=== PATIENT | female | born 2000 | race Caucasian/White ===

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

== ENCOUNTER 2022-02-05 16:49 | Outpatient (CLI) | payer OTHER, SELFPAY ==
[2022-02-05 17:08] LABS: Hematocrit 43.2 % (37.0-47.0); Hemoglobin 14.3 g/dL (12.0-15.0); Mean Corpuscular HGB Conc 33.1 g/dl (32-36); Mean Corpuscular Hemoglobin 31.4 pg (26-34); Mean Corpuscular Volume 94.9 fl (80-100); Mean Platelet Volume 10.2 fl (7.4-10.4); Platelet Count Result 190 k/mm3 (150-375); Red Blood Count 4.55 M/mm3 (4.2-5.4); Red Cell Distribution Width 11.5 % (11.5-14.5); White Blood Count 5.5 K/mm3 (4.5-10.0)
[2022-02-05 17:22] LABS: Alanine Aminotransferase 16 U/L (6-35); Albumin Level 4.3 g/dL (3.7-5.6); Alkaline Phosphatase 68 U/L (45-116); Anion Gap 9 mmol/L (8-16); Aspartate Amino Transferase 19 U/L (14-36); Bilirubin,Total 0.3 mg/dL (0.2-1.3); Blood Urea Nitrogen 18 mg/dL (8-21); Calcium 8.4 mg/dL (8.9-10.7); Carbon Dioxide 29 mmol/L (22-30); Chloride 104 mmol/L (98-107); Estimated Glomerular Filt Rate > 60; Glucose 98 mg/dL (65-110); Potassium 4.4 mmol/L (3.4-5.0); Sodium 142 mmol/L (134-143)
== END 2022-02-05 16:50 | disposition home or self-care (01) ==
LOC: ANHLAB 16:50
PROVIDERS: PCP Family Medicine; Visit Provider Nurse Practitioner Family
DX: M25.40 Effusion, unspecified joint (principal); K92.1 Melena
CPT/HCPCS: 36415; 80053; 85027; 86038

== ENCOUNTER 2022-04-06 08:16 | Outpatient (CLI) | payer OTHER, SELFPAY ==
[2022-04-06 09:37] LABS: Iron 93 ug/dL (37-170)
[2022-04-06 09:46] LABS: Percent Iron Saturation 28 % (20-50)
== END 2022-04-06 08:17 | disposition home or self-care (01) ==
LOC: ANHLAB 08:18
PROVIDERS: PCP Family Medicine; Visit Provider Nurse Practitioner
DX: K92.1 Melena (principal); Z83.49 Family history of other endocrine, nutritional and metabolic diseases; K59.00 Constipation, unspecified; M25.40 Effusion, unspecified joint
CPT/HCPCS: 36415; 81256; 82728; 83540; 83550

== ENCOUNTER 2022-04-30 00:21 | Day surgery (SDC) | payer OTHER, SELFPAY ==
[2022-04-26 15:58] VITALS: BMI 39.9
--- NOTE | 2022-04-28 09:40 | SUR.PREOP ---
943 CALLED PATIENT SPOKE WITH HER MOM AND INFORMED HER OF HER CASE BEING CANCELLED DUE TO UNAVAILABILITY. INFORMED PT'S MOM THAT THE OFFICE WOULD CALL AND RESCHEDULE. PATIENT'S MOM VOICED UNDERSTANDING.
[2022-04-30 12:00] VITALS: BP 126/70; PULSE 108; RESP 20; TEMP 37.1; O2SAT 98
[2022-04-30] MEDS: LACTATED RINGERS 1,000 ML 150 ML IV CONT (12:19)
--- NOTE | 2022-04-30 12:19 | WPDANESEPPF ---
Anes - Initial Pre Proc Eval Procedure: Operation Date: 04/29/22 10:15 Proposed Procedures p Colonoscopy - Jay Cantu MD Operation Date: 04/30/22 13:00 Proposed Procedures p Colonoscopy - Jay Cantu MD Date/Time: 04/30/22 12:19 Surgeon: Jay Cantu MD Pre Op Diagnosis: constipation, rectal bleed Patient Data Age: 21 Gender: F Height: 1.6 m Weight: 103.7 kg Last Vital Signs Temp 37.1 C 04/30/22 12:00 Pulse 108 H 04/30/22 12:00 Resp 20 04/30/22 12:00 BP 126/70 04/30/22 12:00 Pulse Ox 98 04/30/22 12:00 O2 Del Method Room Air 04/30/22 12:00 Allergies Allergy/AdvReac Type Severity Reaction Status Date / Time No Known Allergies Allergy Mild Verified 04/30/22 11:56 Home Medications Medication Instructions Recorded Confirmed Type levonorgestrel 20 mcg/24 hours (8 1 insert intrauterine ONCE 08/13/21 04/29/22 History yrs) 52 mg intrauterine device (Mirena) cetirizine 10 mg capsule (Zyrtec) 10 mg PO DAILY PRN allergy 12/10/21 04/30/22 Rx symptoms #30 caps famotidine 10 mg tablet (Pepcid AC) 10 mg PO DAILY #30 tabs 12/10/21 04/29/22 Rx hydroxyzine HCl 25 mg tablet 25 mg PO BID PRN itching #30 tabs 12/10/21 04/29/22 Rx elagolix 150 mg tablet (Orilissa) See Rx Instructions .Route 03/11/22 04/29/22 Rx .COMPLEX #28 tabs venlafaxine 150 mg See Rx Instructions .Route 03/11/22 04/29/22 Rx capsule,extended release 24 hr .COMPLEX #90 caps venlafaxine 75 mg capsule,extended See Rx Instructions .Route 03/11/22 04/29/22 Rx release 24 hr .COMPLEX #90 caps montelukast 10 mg tablet 10 mg PO DAILY #90 tabs 03/27/22 04/29/22 Rx (Singulair) sodium,potassium,mag sulfates 17.5 See Rx Instructions PO .COMPLEX 04/25/22 04/29/22 Rx gram-3.13 gram-1.6 gram oral soln #354 mL (Suprep Bowel Prep Kit) metoprolol succinate 25 mg 25 mg PO BID 04/26/22 04/29/22 History tablet,extended release 24 hr cefdinir 300 mg capsule 300 mg PO Q12H #20 caps 04/29/22 04/29/22 Rx Patient hx anesthesia problems: none Family hx anesthesia problems: none Results Review: All pre-operative results and documents have been reviewed as part of the pre-operative evaluation. [facility] Past Medical History Medical History BMI 35.0-35.9,adult BMI 38.0-38.9,adult BMI 40.0-44.9, adult Colonoscopy planned Constipation Depression Endometriosis Endometriosis determined by laparoscopy Family history of hemochromatosis Hematochezia Hives Family History Family History Mother Hypertension Atrial tachycardia Diverticula of colon Endometriosis Irritable bowel Malignant hyperthermia Father Malignant neoplasm of prostate Hemochromatosis Hypothyroid Adrenal abnormality Depression Sibling No problems noted. 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 Gender identity (if verbalized by the patient): Female Sexual Orientation (if Verbalized by the Patient): Bisexual Spiritual care concerns: No Agree to blood products: Yes Anes - Eval Final PreProcedure Day of Procedure 04/30/22 12:19 Patient weight: morbidly obese Heart: regular rate and rhythm Lungs: clear to auscultation Airway: Mallampati scale class 1 Neurological: alert and oriented Last oral intake: >/= 8 hours ASA classification: III Emergent: no Anesthetic plan: proceed Anesthesia type and monitoring: general GIVS and standard monitoring Results Review: All pre-operative results and documents have bee
--- NOTE | 2022-04-30 12:38 | PM.HPGS ---
History of Present Illness History of Present Illness Consent: Risks, benefits, and alternatives have been discussed and questions answered. Patient agrees to proceed with procedure. Chief complaint: constipation, rectal bleed Narrative: Bethany Lake is a 21 year old female here because intermittent rectal bleeding Review of Systems Constitutional: Constitutional: Denies headache(s) and Denies weakness Eyes: Eyes: Denies blurry vision ENT: Reports Normal hearing present, Denies headache(s) and Denies neck pain Cardiovascular: Cardiovascular: Denies chest pain and Denies dyspnea Respiratory: Respiratory: Denies dyspnea Gastrointestinal: Gastrointestinal: Reports no additional gastrointestinal complaints Genitourinary: Genitourinary: Denies dysuria Musculoskeletal: Musculoskeletal: Denies neck pain Integumentary/Breasts: Skin/Breast: Denies dry skin Neurologic: Reports Normal hearing present, Denies headache(s) and Denies weakness Psychiatric: Psychiatric: Denies anxiety Endocrine: Endocrine: Denies change in body appearance Hematologic/Lymphatic: Hematologic/Lymphatic: Denies easy bleeding Allergic/Immunologic: Allergic/Immunologic: Denies urticaria PMFSH Past Medical History Medical History BMI 35.0-35.9,adult BMI 38.0-38.9,adult BMI 40.0-44.9, adult Colonoscopy planned Constipation Depression Endometriosis Endometriosis determined by laparoscopy Family history of hemochromatosis Hematochezia Hives Family History Family History Mother Hypertension Atrial tachycardia Diverticula of colon Endometriosis Irritable bowel Malignant hyperthermia Father Malignant neoplasm of prostate Hemochromatosis Hypothyroid Adrenal abnormality Depression Sibling No problems noted. 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[employer] Gender identity (if verbalized by the patient): Female Sexual Orientation (if Verbalized by the Patient): Bisexual Spiritual care concerns: No Agree to blood products: Yes Meds Home Medications and Allergies Home Medications Medication Instructions Recorded Confirmed Type levonorgestrel 20 mcg/24 hours (8 1 insert intrauterine ONCE 08/13/21 04/29/22 History yrs) 52 mg intrauterine device (Mirena) cetirizine 10 mg capsule (Zyrtec) 10 mg PO DAILY PRN allergy 12/10/21 04/30/22 Rx symptoms #30 caps famotidine 10 mg tablet (Pepcid AC) 10 mg PO DAILY #30 tabs 12/10/21 04/29/22 Rx hydroxyzine HCl 25 mg tablet 25 mg PO BID PRN itching #30 tabs 12/10/21 04/29/22 Rx elagolix 150 mg tablet (Orilissa) See Rx Instructions .Route 03/11/22 04/29/22 Rx .COMPLEX #28 tabs venlafaxine 150 mg See Rx Instructions .Route 03/11/22 04/29/22 Rx capsule,extended release 24 hr .COMPLEX #90 caps venlafaxine 75 mg capsule,extended See Rx Instructions .Route 03/11/22 04/29/22 Rx release 24 hr .COMPLEX #90 caps montelukast 10 mg tablet 10 mg PO DAILY #90 tabs 03/27/22 04/29/22 Rx (Singulair) sodium,potassium,mag sulfates 17.5 See Rx Instructions PO .COMPLEX 04/25/22 04/29/22 Rx gram-3.13 gram-1.6 gram oral soln #354 mL (Suprep Bowel Prep Kit) metoprolol succinate 25 mg 25 mg PO BID 04/26/22 04/29/22 History tablet,extended release 24 hr cefdinir 300 mg capsule 300 mg PO Q12H #20 caps 04/29/22 04/29/22 Rx Allergies Allergy/AdvReac Type Severity Reaction Status Date / Time No Known Allergies Allergy Mild Verified 04/30/22 11:56 Vital Signs Vital Signs - 24 hr 04/30/22 12:00
[2022-04-30 12:55] VITALS: BP 88/55; PULSE 78; RESP 22; O2SAT 100
[2022-04-30 13:05] VITALS: BP 104/62; PULSE 84; RESP 22; O2SAT 100
[2022-04-30 13:15] VITALS: BP 107/73; PULSE 78; RESP 20; O2SAT 100
== END 2022-04-30 13:27 | disposition home or self-care (01) ==
PROVIDERS: PCP Family Medicine; Visit Provider Internal Medicine Gastroenterology
PROC: 0DJD8ZZ Inspection of Lower Intestinal Tract, Via Natural or Artificial Opening Endoscopic (ICD-10-PCS; CPT 45378; principal; 2022-04-30 13:00)
DX: K92.1 Melena (principal); K64.8 Other hemorrhoids; N80.9 Endometriosis, unspecified; F32.A Depression, unspecified; E66.01 Morbid (severe) obesity due to excess calories
CPT/HCPCS: 45378; J2704; J7120

== ENCOUNTER → 2022-06-10 16:42 | Outpatient (CLI) | payer OTHER, SELFPAY ==
--- NOTE | ~2022-06-10 | XR_ITS ---
EXAMINATION: XR chest 2V 06/10/2022 16:55 INDICATION: Cough PROCEDURE: 2 view chest COMPARISON: 06/13/2021 FINDINGS: The lungs are clear. The cardiomediastinal silhouette is within normal limits. There are no pleural effusions. There is no pneumothorax suspected. IMPRESSION: 1: NO ACUTE CARDIOPULMONARY DISEASE. Reviewed, dictated and finalized at location A. [employer]
== END ==
PROVIDERS: PCP Nurse Practitioner Family; Visit Provider Nurse Practitioner Family
DX: R05.9 Cough, unspecified (principal)
CPT/HCPCS: 71046

== ENCOUNTER 2023-04-01 11:17 | Outpatient (CLI) | payer OTHER, SELFPAY ==
[2023-04-01 11:57] LABS: Basophils Percent Auto 0.3 % (0.2-1.2); Eosinophils Percent Auto 0.2 % (0-4.4); Hematocrit 46.5 % (37.0-47.0); Hemoglobin 15.3 g/dL (12.0-15.0); Immature Granulocyte Absolute 0.02 K/mm3 (0.00-0.031); Immature Granulocyte Percent A 0.3 % (0-0.5); Lymphocytes Absolute Auto 2.09 K/mm3 (0.9-3.2); Lymphocytes Percent Auto 35.1 % (18.3-44.2); Mean Corpuscular HGB Conc 32.9 g/dl (32-36); Mean Corpuscular Hemoglobin 31.7 pg (26-34); Mean Corpuscular Volume 96.5 fl (80-100); Mean Platelet Volume 10.9 fl (7.4-10.4); Monocytes Absolute Auto 0.4 K/mm3 (0.1-0.6); Monocytes Percent Auto 7.2 % (2.6-8.5); Neutrophils Absolute Auto 3.4 K/mm3 (1.3-6.7); Neutrophils Percent Auto 56.9 % (45.5-73.1); Platelet Count Result 229 k/mm3 (150-375); Red Blood Count 4.82 M/mm3 (4.2-5.4); Red Cell Distribution Width 11.7 % (11.5-14.5)
[2023-04-01 12:13] LABS: Alanine Aminotransferase 19 U/L (6-35); Albumin Level 4.4 g/dL (3.5-5.1); Alkaline Phosphatase 49 U/L (38-126); Anion Gap 6 mmol/L (8-16); Aspartate Amino Transferase 24 U/L (14-36); Bilirubin,Total 0.6 mg/dL (0.2-1.3); Blood Urea Nitrogen 12 mg/dL (7-17); Calcium 8.6 mg/dL (8.4-10.2); Carbon Dioxide 27 mmol/L (22-30); Chloride 106 mmol/L (98-107); Estimated Glomerular Filt Rate > 60; Glucose 87 mg/dL (65-110); Sodium 139 mmol/L (137-145)
[2023-04-01 12:40] LABS: Thyroid Stimulating Hormone 0.917 uIU/mL (0.465-4.680)
== END 2023-04-01 11:18 | disposition home or self-care (01) ==
LOC: ANHLAB 11:18
PROVIDERS: PCP Family Medicine; Visit Provider Nurse Practitioner Family
DX: N80.9 Endometriosis, unspecified (principal); F32.A Depression, unspecified; F41.9 Anxiety disorder, unspecified; Z13.29 Encounter for screening for other suspected endocrine disorder
CPT/HCPCS: 36415; 80053; 84443; 85025

== ENCOUNTER 2023-10-06 15:09 | Outpatient (CLI) | payer OTHER, SELFPAY ==
--- NOTE | 2023-10-08 12:54 | P.PCNPFT_ITS ---
PFT Procedure Performed PFT Procedure Performed Plethysmography (Lung Vol) Diffusing Cap (DLCO) Flow Vol Loop Spirometry w/o Bronchodil PFT Interpretation This is a pulmonary function test with spirometry, plethysmography and diffusing capacity. The test was performed and results interpreted in accordance with the 2019 and 2005 ATS/ERS Task Force guidelines respectively using the Global Lung Function Initiative-2012 reference equations. Patient demonstrated good effort and cooperation. Reproducibility criteria were met. The quality of the spirometry maneuver was Grade A. Of note, plethysmography demonstrated 3 trials with reproducible results. Unable to identify any leaks on the mouthpiece or inco rrect patient technique. Findings: Spirometry: The contour the inspiratory and expiratory flow tracing are normal. The FVC is 4.61 L, 131% predicted. The FEV1 is 3.78 L, 122% predicted. The FEV1: FVC ratio is 82%. Plethysmography: The total lung capacity is 4.71 L, 100% predicted. The functional residual capacity is 1.00 L, 40% predicted. The residual volume is 0.05 L, 5% predicted. Diffusing capacity: The diffusing capacity unadjusted for hemoglobin and carboxyhemoglobin is 27.7, 110% predicted. The diffusing capacity adjusted for alveolar volume is 5.41, 105% predicted. Impression: The spirometry is normal without evidence of an obstructive abnormality. The total lung capacity is normal with a decreased functional residual capacity and residual volume. This is an abnormal but nonspecific lung volume pattern. The diffusing capacity is normal. There are no prior studies for comparison
== END 2023-10-06 15:10 | disposition home or self-care (01) ==
LOC: ANHPFT 15:10
PROVIDERS: PCP Family Medicine; Visit Provider Nurse Practitioner Family
DX: R06.02 Shortness of breath (principal)
CPT/HCPCS: 94375; 94726; 94729

== ENCOUNTER 2023-10-20 12:06 | Outpatient (CLI) | payer OTHER, SELFPAY ==
[2023-10-20 13:05] LABS: Alanine Aminotransferase 15 U/L (6-35); Albumin Level 4.4 g/dL (3.5-5.1); Alkaline Phosphatase 58 U/L (38-126); Anion Gap 8 mmol/L (4-12); Aspartate Amino Transferase 20 U/L (14-36); Bilirubin,Total 0.4 mg/dL (0.2-1.3); Blood Urea Nitrogen 15 mg/dL (7-17); Calcium 9.1 mg/dL (8.4-10.2); Carbon Dioxide 24 mmol/L (22-30); Chloride 108 mmol/L (98-107); Estimated Glomerular Filt Rate > 60; Glucose 94 mg/dL (65-110); Sodium 140 mmol/L (137-145)
[2023-11-04 14:05] LABS: Reference Lab Test Result <1.0 U/mL
== END 2023-10-20 12:07 | disposition home or self-care (01) ==
PROVIDERS: PCP Family Medicine; Visit Provider Physician Assistant Medical
DX: R10.11 Right upper quadrant pain (principal); R19.5 Other fecal abnormalities
CPT/HCPCS: 36415; 80053; 86364

== ENCOUNTER 2023-10-24 10:19 | Outpatient (CLI) | payer OTHER, SELFPAY ==
--- NOTE | ~2023-10-24 | US_ITS ---
Abdominal Sonogram: Real-time sonographic imaging of the abdomen was performed. Clinical History: Abdominal pain Findings: The liver appears normal with no evidence of mass lesion or bile duct dilatation. Main por tacho vein demonstrates normal direction of flow. The spleen is normal in size without evidence of foca l lesion. The gallbladder is partially distended, and contains a small echogenic shadowing gallstone . No gallbladder wall thickening. The common bile duct measures 4 mm. The visualized pancreas, aorta , and IVC are unremarkable. The right kidney measures 12.2 cm in length and the left kidney measures 10.8 cm. There is no hydronephrosis or renal calculus. Impression: Small gallstone. Reviewed, dictated and finalized at location . Impression: Small gallstone.
== END 2023-10-24 10:20 ==
LOC: MICIMG 10:20
PROVIDERS: PCP Physician Assistant Medical; Visit Provider Physician Assistant Medical
DX: K80.20 Calculus of gallbladder without cholecystitis without obstruction (principal)
CPT/HCPCS: 76700

== ENCOUNTER 2023-10-25 14:07 | Emergency (ER) | payer OTHER, SELFPAY ==
[2023-10-25 14:12] VITALS: BP 133/73; PULSE 90; RESP 20; TEMP 37; O2SAT 100
== END 2023-10-25 14:28 | disposition left against medical advice (07) ==
LOC: EXPBETH 14:10
PROVIDERS: Emergency Provider Registered Nurse; PCP Physician Assistant Medical
DX: Z53.21 Procedure and treatment not carried out due to patient leaving prior to being seen by health care provider (principal)
CPT/HCPCS: 99199

== ENCOUNTER 2023-10-25 15:10 | Emergency (ER) | payer OTHER, SELFPAY ==
--- NOTE | ~2023-10-25 | XR_ITS ---
EXAMINATION: XR chest 2V Exam Date/Time: 10/25/2023 19:15 CDT HISTORY: chest pain x 2 weeks. Comparison: 06/10/2022, report only. RESULT: Lines, tubes, and devices: None. Lungs and pleura: Linear opacity in the right upper lung. Cardiomediastinal silhouette: Normal. Other: No acute osseous or upper abdominal finding. IMPRESSION: Linear opacity in the right upper lung, may represent summation artifact from normal structures, atel ectasis or scarring. Focus of infection is considered less likely. Consider radiographic follow-up to demonstrate stability and/or resolution. Otherwise, no acute cardiopulmonary process detected. Reviewed, dictated and finalized at location K. IMPRESSION: Linear opacity in the right upper lung, may represent summation artifact from n ormal structures, atelectasis or scarring. Focus of infection is considered les s likely. Consider radiographic follow-up to demonstrate stability and/or resol ution. Otherwise, no acute cardiopulmonary process detected.
[2023-10-25 15:15] VITALS: BP 118/93; PULSE 77; RESP 20; TEMP 37.3; O2SAT 100
[2023-10-25 17:03] VITALS: BP 121/81; PULSE 79; RESP 20; TEMP 37; O2SAT 100
--- NOTE | 2023-10-25 17:03 | PC.NURSE ---
PT RESTING PER COT, MOTHER IN ROOM WITH PT. EXPLAINED WAIT TIME. VOICED UNDERSTANDING
--- NOTE | 2023-10-25 17:19 | PC.NURSE ---
dr cifuentes in with pt for initial assessment
--- NOTE | 2023-10-25 17:26 | ED.GENADULT ---
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 Patient has been using Gas-X and Pepcid for this as well as her GERD that she has had. She missed 2 days of work last week. her primary care Madalyn Callahan PAC note stated that they would get a HIDA scan if there was no stone. A CBC was done which was normal. Patient denies any problems voiding. Little bit of constipation yesterday she had a normal bowel movement she rates her pain as a 6 to 7/10. He has also had some chest tightness that last for 5-10 minutes off and on for the last month for pretty much a daily basis. She said she had a normal chest x-ray in July and has had 3 episodes of SVT since July. She came in with her mother was also a nurse they are worried that she might have an infection could she has had some fevers off and on mostly at nighttime. And they also wonder if she needs to be on some antibiotics. Pain is in the epigastric and radiates to her right upper quadrant. She said she has been little distended bloated. Denies any other complaints. Related Data Home Medications Medication Instructions Recorded Confirmed levonorgestrel 21 mcg/24 hours (8 1 insert intrauterine ONCE 08/13/21 10/20/23 yrs) 52 mg intrauterine device (Mirena) metoprolol tartrate 25 mg tablet 25 mg PO BID 09/11/23 10/20/23 Allergies Allergy/AdvReac Type Severity Reaction Status Date / Time No Known Allergies Allergy Mild Verified 10/25/23 15:13 Review of Systems Review of Systems: All systems reviewed & are unremarkable except as noted in HPI and below PMFSH Past Medical History Medical History BMI 34.0-34.9,adult BMI 35.0-35.9,adult BMI 36.0-36.9,adult BMI 38.0-38.9,adult BMI 40.0-44.9, adult Colonoscopy planned Constipation Depression Endometriosis Endometriosis determined by laparoscopy Family history of hemochromatosis Hematochezia Hives Inappropriate sinus node tachycardia Family History Family History Mother Hypertension Atrial tachycardia Diverticula of colon Endometriosis Irritable bowel Malignant hyperthermia Father Malignant neoplasm of prostate Hemochromatosis Hypothyroid Adrenal abnormality Depression Sibling No problems noted. 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 Head normocephalic, atraumatic.? Eyes conjunctiva pink sclera nonicteric.? Extraocular movements are intact.? Ears externally normal.? Oropharynx is clear with moist mucous membranes without exudates.? Neck is supple nontender no lymphadenopathy.? Back is nontender.? Lungs are clear.? Heart is regular rate and rhythm without murmurs gallops or rubs.? Chest wall nontender.? Back is nontender. Abdomen is soft and minimally tender in right upper quadrant. No hepatosplenomegaly or masses no CVA tenderness no abdominal bruits.? ne
[2023-10-25] MEDS: HYDROcodone/acetaminophen (*CRX) 5-325 MG TABLET 1 TAB PO ×2 (17:58→20:26)
[2023-10-25 17:59] VITALS: BP 113/68; PULSE 88; RESP 20; O2SAT 100
--- NOTE | 2023-10-25 18:29 | PC.NURSE ---
LAB STAFF IN WITH PT AT THIS TIME FOR LAB DRAW.
[2023-10-25 18:41] LABS: Hematocrit 42.9 % (35.0-49.0); Hemoglobin 14.5 g/dL (12.0-15.0); Mean Corpuscular HGB Conc 33.8 g/dL (32-36); Mean Corpuscular Volume 94.7 fL (78.0-102.0); Mean Platelet Volume 10.1 fl (9.2-11.8); Platelet Count Result 219 K/mm3 (150-420); Red Blood Count 4.53 M/mm3 (4.20-5.40); Red Cell Distribution Width 11.2 % (11.6-14.4); White Blood Count 7.1 K/mm3 (4.8-10.8)
[2023-10-25 18:56] LABS: Lactic Acid Reflex 1.4 mmol/L (0.4-2.0)
[2023-10-25 18:58] LABS: Appearance Urine Clear (Clear); Bilirubin Urine Negative (Negative); Blood Urine Negative (Negative); Color Urine Light Yellow (Yellow); Glucose Urine UA Negative (Negative); Ketones Urine Negative (Negative); Leukocyte Esterase Ur Negative LEU/UL (Negative); Nitrate Urine Negative (Negative); Protein Urine Negative (Negative); Urobilinogen Urine 0.2 mg/dL (0.2-1.0)
[2023-10-25 19:03] LABS: Alanine Aminotransferase 21 U/L (14-59); Albumin Level 3.9 g/dL (3.4-5.0); Alkaline Phosphatase 63 U/L (46-116); Anion Gap 11 mmol/L (4-12); Aspartate Amino Transferase 12 U/L (15-37); Bilirubin,Total 0.6 mg/dL (0.00-1.00); Blood Urea Nitrogen 10 mg/dL (7-18); Calcium 8.8 mg/dL (8.5-10.1); Carbon Dioxide 25 mmol/L (21-32); Chloride 105 mmol/L (98-108); Estimated CRCL calculation 87 ml/min; Estimated Glomerular Filt Rate > 60; Glucose 86 mg/dL (70-99); Lipase 44 U/L (16-77); Osmolality Calculated 290 mOsm/kg (285-295); Potassium 3.1 mmol/L (3.5-5.1); Sodium 141 mmol/L (136-145); Total Protein 7.2 g/dL (6.4-8.2)
[2023-10-25 19:05] LABS: Add Urine Microscopic? NO
--- NOTE | 2023-10-25 19:15 | PC.NURSE ---
report to chapito acuña. all questions answered.
[2023-10-25 19:16] LABS: Pregnancy On Board Control Positive; Urine Pregnancy Test Negative
--- NOTE | 2023-10-25 19:18 | ECG_ITS ---
SEE SCANNED COPY FOR CONFIRMED REPORT MTDD
[2023-10-25] MEDS: POTASSIUM CHLORIDE 20 MEQ PACKET (FOR LIQUID) 40 MEQ PO (20:40)
[2023-10-25 20:53] VITALS: BP 120/88; PULSE 78; RESP 18; TEMP 36.6; O2SAT 100
== END 2023-10-25 20:53 | disposition home or self-care (01) ==
PROVIDERS: Emergency Provider Emergency Medicine; PCP Physician Assistant Medical
DX: K83.8 Other specified diseases of biliary tract (principal); E87.6 Hypokalemia
CPT/HCPCS: 36415; 71046; 80053; 81003; 81025; 83605; 83690; 85027; 93005; 99283; A9270

== ENCOUNTER 2023-11-03 03:36 | Day surgery (SDC) | payer OTHER, SELFPAY ==
[2023-10-31 12:19] VITALS: BMI 34.0
--- NOTE | 2023-10-31 12:44 | PC.NURSE ---
Report to the Outpatient Waiting Room, entrance under the green pavilion located off [facility], at time _12:00PM on date ___11/03/23____. Planned Procedure Time: ___2:00PM . Time changes happen often and if your time is changed the preop area will call you the afternoon before. - You and your visitor will be asked to self-screen and do not enter if you have any COVID symptoms. - A mask is optional within the hospital at this time. Patients may have clear liquids (water, carbonated beverages, clear teas, apple juice) until 3 hours prior to surgery with a maximum of 20 ounces. - No food from midnight until time of surgery - Infants may have breast milk until 4 hours before surgery, infant formula 6 hours prior to surgery. - Children will be allowed to drink immediately following surgery. If applicable, please bring a bottle or sippy cup to assist with drinking. Juice, water, soda, and popsicles are readily available. For infants on formula, please bring formula the day of surgery. Pacifiers are allowed. Take the following medications with a SIP of water the morning of surgery: ____METOPROLOL, VENLAFAXINE. TRAMADOL NEEDED FOR PAIN. DO NOT STOP ANY OF YOUR OTHER PRESCRIPTION MEDICATIONS PRIOR TO SURGERY ?EXCEPT THE FOLLOWING Medications to discontinue per physician NONE Date to take last dose Please no make-up, nail french, hairspray, perfume, deodorant, or body powder the day of surgery. No jewelry (including any body piercings) or valuables the day of surgery, leave them at home. Please take a shower or bath the night before, or the morning of, surgery with an antibacterial soap. Wear comfortable, loose fitting clothing. Children are encouraged to wear pajamas. - Jewelry must be removed prior to entering the operating room. Rings and piercings that are not removed may be cut off. - The hospital will not accept responsibility for valuables. - Please leave all valuables, including medications, at home the day of surgery. If you are going home after surgery, a licensed [employer] hazmat company driver must drive you home. - NO public transportation without another adult if you receive anesthesia. - We recommend that an adult stay with you for 24 hours following discharge. - We also recommend that you do not drive, make important decision, drink alcoholic beverages, or take any drugs that were not prescribed by your health care provider for at least 24 hours after your discharge time. For Pediatric surgeries, we recommend two adults accompany the child home. Follow any additional instructions given to you from your surgeon. If you or anyone in your household have experienced Covid symptoms in the past week, please notify your surgeon or the nurse liaison at the phone number below for possible testing. Telephone instructions given to ____PATIENT and asked if any additional questions and then verbalized understanding. Patient advised to call surgeon office or pre surgery nurse liaison [phone] if any additional questions.
[2023-11-03] VITALS (9 sets, daily range): BP systolic 108–132; BP diastolic 63–109; PULSE 75–105; RESP 14–16; TEMP 35.9–36.3; O2SAT 100
[2023-11-03] MEDS: LACTATED RINGERS 1,000 ML 30 ML IV CONT ×2 (07:15→08:36)
[2023-11-03] MEDS: ACETAMINOPHEN 500 MG TABLET 1000 MG PO (07:15)
[2023-11-03] MEDS: KETOROLAC 15 MG/ML VIAL (*BKC) IV PUSH (07:15)
--- NOTE | 2023-11-03 07:15 | WPDANESEPPF ---
Anes - Initial Pre Proc Eval Procedure: Operation Date: 11/03/23 07:30 Proposed Procedures p Laparoscopic Cholecystectomy - Elana Presley MD Date/Time: 11/03/23 07:15 Surgeon: Elana Presley MD Pre Op Diagnosis: chronic cholecystitis with cholelithiasis Patient Data Age: 23 Gender: F Height: 1.6 m Weight: 87 kg Allergies Allergy/AdvReac Type Severity Reaction Status Date / Time No Known Allergies Allergy Mild Verified 10/31/23 12:14 Home Medications Medication Instructions Recorded Confirmed Type levonorgestrel 21 mcg/24 hours (8 1 insert intrauterine ONCE 08/13/21 10/31/23 History yrs) 52 mg intrauterine device (Mirena) cetirizine 10 mg capsule (Zyrtec) 10 mg PO DAILY PRN allergy 12/10/21 10/31/23 Rx symptoms #30 caps famotidine 10 mg tablet (Pepcid AC) 10 mg PO DAILY #30 tabs 12/10/21 10/31/23 Rx hydroxyzine HCl 25 mg tablet 25 mg PO BID PRN itching #30 tabs 12/10/21 10/31/23 Rx venlafaxine 75 mg capsule,extended 75 mg PO DAILY #90 caps 07/14/23 10/31/23 Rx release 24 hr metoprolol tartrate 25 mg tablet 25 mg PO BID 09/11/23 10/31/23 History potassium chloride 20 mEq 20 meq PO DAILY #10 tabs 10/25/23 10/31/23 Rx tablet,extended release(part/cryst) tramadol 50 mg tablet 50 mg PO BID PRN pain #14 tabs 10/27/23 10/31/23 Rx venlafaxine 150 mg 150 mg PO QAM 10/31/23 10/31/23 History capsule,extended release 24 hr Laboratory Tests 11/03/23 06:59 Amylase Pending Patient hx anesthesia problems: hx of malignant hyperthermia (family history of; will treat as if MH) Family hx anesthesia problems: none Results Review: All pre-operative results and documents have been reviewed as part of the pre-operative evaluation. [facility] Past Medical History Medical History BMI 33.0-33.9,adult BMI 34.0-34.9,adult BMI 35.0-35.9,adult BMI 36.0-36.9,adult BMI 38.0-38.9,adult BMI 40.0-44.9, adult Colonoscopy planned Constipation Depression Endometriosis Endometriosis determined by laparoscopy Family history of hemochromatosis Hematochezia Hives Inappropriate sinus node tachycardia Surgical History Surgical History History of lingual frenulectomy History of wisdom tooth extraction Hx of exploratory laparotomy endometriosis 07/2020 Family History Family History Mother Hypertension Atrial tachycardia Diverticula of colon Endometriosis Irritable bowel Malignant hyperthermia Father Malignant neoplasm of prostate Hemochromatosis Hypothyroid Adrenal abnormality Depression Sibling No problems noted. 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[employer] Gender identity (if verbalized by the patient): Female Sexual Orientation (if Verbalized by the Patient): Bisexual Spiritual care concerns: No Agree to blood products: Yes Anes - Eval Final PreProcedure Day of Procedure 11/03/23 07:15 Patient weight: obese Heart: regular rate and rhythm Lungs: clear to auscultation Airway: Mallampati scale class III Neurological: alert and oriented Last oral intake: >/= 8 hours ASA classification: III Emergent: no Anesthetic plan: proceed Anesthesia type and monitoring: general ETT and standard monitoring Results Review: All pre-operative results and documents have been reviewe
[2023-11-03] MEDS: fentaNYL CITRATE INJ (*CRX) 100 MCG/2 ML VIAL 25 MCG IV PUSH ×2 (07:20→07:22)
--- NOTE | 2023-11-03 07:22 | WPDHPUPDATE1 ---
History and Physical Update Update Date/Time: 11/03/23 07:22 History and Physical has been reviewed, including an updated exam of the patient. There are NO changes in the patient's condition. Risks, benefits, and alternatives have been discussed and questions answered. Patient agrees to proceed with procedure. will proceed with laparoscopic cholecystectomy
[2023-11-03 07:23] LABS: Amylase 62 U/L (30-110)
[2023-11-03] MEDS: ceFAZolin 2 GM/D5W 50 ML 2 GM/50 ML BAG IVPB (07:28)
[2023-11-03] MEDS: BUPIVACAINE/EPINEPHRINE 0.5% 30 ML VIAL INFILTRATE (07:52)
--- NOTE | 2023-11-03 08:12 | W.PM.PROC2 ---
Procedure Note - Detailed Date of Procedure 11/03/23 Pre-op Diagnosis chronic cholecystitis Post-op Diagnosis Same Procedure Performed Laparoscopic cholecystectomy Surgeon Elana Presley MD Anesthesia General Indications 23-year-old female presented to the office complaining of postprandial right upper quadrant abdominal pain associated with nausea and vomiting. Workup including imaging significant for cholecystitis, cholelithiasis. Findings Moderate cholecystitis Description of Procedure The patient was taken to the operating room placed in the supine position. After adequate induction of general anesthesia, the patient was prepped and draped in normal sterile fashion. A time-out was then performed to verify the patient's identity as well as the procedure being performed. I then made a 5 mm incision in the infraumbilical region. Through this, a Veress needle was placed into the peritoneal cavity and CO2 gas was then insufflated. After adequate pneumoperitoneum was achieved, the Veress needle was removed and a 5 mm optiview trocar was placed through this incision under direct visualization. I then placed the laparoscope through this trocar site and under direct visualization placed a further 12 mm subxiphoid port as well as 2 additional 5 mm ports in the right upper abdomen. The gallbladder was then identified and was noted to be moderately inflamed and distended. I was able to place a grasper at the dome of the gallbladder and this was retracted anterior and cephalad up over the liver. A 2nd retractor was then placed at the infundibulum and retracted laterally, this allowed visualization of the triangle of Calot. I then was able to visualize the cystic duct in its entirety from its proximal insertion into the gallbladder, to its distal junction with the common hepatic/common bile duct junction. At this point, I carefully skeletonized the proximal cystic duct with the [place] dissector. I then clipped and transected the proximal cystic duct. Next I visualized the cystic artery. Again the artery was skeletonized, clipped, and transected. I then used the Bovie cautery to take down the peritoneal attachments of the gallbladder off the liver bed. This was somewhat difficult given the amount of inflammation in the posterior space. Once the gallbladder specimen was completely detached, an endo-pouch was placed through the 12 mm port site. I then placed the gallbladder specimen into the Endo pouch and removed the endo-pouch from the 12 mm port site. The specimen will now be sent to pathology for further review. I then copiously irrigated the right upper quadrant. Hemostasis was noted in the liver bed, the clips were noted to be in good position on both the cystic duct stump and the cystic artery stump. No other pathology was noted in the right upper quadrant. I then moved the laparoscope to the subxiphoid port. No iatrogenic injury or other pathology was noted in the lower abdomen. I then closed the 12 mm trocar site under direct visualization using the [place] cone and 0 Vicryl suture. At this point, the abdomen was desufflated and all ports removed. All port sites were then closed with 4.O Monocryl subcuticular sutures. Dermabond was placed on each incision. The patient tolerated the procedure well, was extubated in the operating room postoperative and will be transferred to the recovery room in stable condition Estimated Blood Loss 10 Drains No Packing No Pathology Yes Complications No immediate complications Condition Stable Disposition PACU [facility] Billing Surgery - Charge Forward: Surgery Billing
[2023-11-03] MEDS: oxyCODONE HCL (*CRX) 5 MG TAB IR PO (09:16)
== END 2023-11-03 09:55 | disposition home or self-care (01) ==
PROVIDERS: PCP Family Medicine; Visit Provider Surgery
PROC: 0FT44ZZ Resection of Gallbladder, Percutaneous Endoscopic Approach (ICD-10-PCS; CPT 47562; principal; 2023-11-03 07:30)
DX: K81.1 Chronic cholecystitis (principal); F32.A Depression, unspecified; N80.9 Endometriosis, unspecified; F17.290 Nicotine dependence, other tobacco product, uncomplicated; F12.90 Cannabis use, unspecified, uncomplicated; I47.11 Inappropriate sinus tachycardia, so stated; E66.9 Obesity, unspecified; Z68.32 Body mass index [BMI] 32.0-32.9, adult; Z79.891 Long term (current) use of opiate analgesic; Z98.890 Other specified postprocedural states; Z80.8 Family history of malignant neoplasm of other organs or systems; Z80.42 Family history of malignant neoplasm of prostate
CPT/HCPCS: 47562; 36415; 82150; 88304; A9270; J0690; J1100; J1170; J1885; J2250; J2405; J2704; J3010; J7030; J7120

== ENCOUNTER 2024-06-17 10:11 | Outpatient (CLI) | payer OTHER, SELFPAY ==
[2024-06-17 10:41] LABS: Hematocrit 46.8 % (37.0-47.0); Hemoglobin 16.2 g/dL (12.0-15.0); Mean Corpuscular HGB Conc 34.6 g/dl (32-36); Mean Corpuscular Hemoglobin 32.3 pg (26-34); Mean Corpuscular Volume 93.4 fl (80-100); Mean Platelet Volume 10.5 fl (7.4-10.4); Platelet Count Result 224 k/mm3 (150-375); Red Blood Count 5.01 M/mm3 (4.2-5.4); Red Cell Distribution Width 11.3 % (11.5-14.5); White Blood Count 7.5 K/mm3 (4.5-10.0)
[2024-06-17 11:14] LABS: Alanine Aminotransferase 22 U/L (6-35); Albumin Level 4.4 g/dL (3.5-5.1); Alkaline Phosphatase 57 U/L (38-126); Anion Gap 8 mmol/L (4-12); Aspartate Amino Transferase 20 U/L (14-36); Bilirubin,Total 0.4 mg/dL (0.2-1.3); Blood Urea Nitrogen 13 mg/dL (7-17); Calcium 9.2 mg/dL (8.4-10.2); Carbon Dioxide 24 mmol/L (22-30); Chloride 106 mmol/L (98-107); Cholesterol 153 mg/dL (0-200); Estimated Glomerular Filt Rate > 60; Glucose 97 mg/dL (65-110); HDL Direct 51 mg/dL; Phosphorus 3.4 mg/dL (2.5-4.5); Potassium 3.8 mmol/L (3.4-5.0); Sodium 138 mmol/L (137-145); Triglycerides 104 mg/dL (<150)
[2024-06-17 11:17] LABS: LDL Cholesterol Direct 75 mg/dL
[2024-06-17 11:20] LABS: Vitamin D 25 Hydroxy 31.6 ng/mL
== END 2024-06-17 10:12 | disposition home or self-care (01) ==
PROVIDERS: PCP Family Medicine
DX: F32.2 Major depressive disorder, single episode, severe without psychotic features (principal)
CPT/HCPCS: 36415; 80053; 80061; 80069; 82306; 82607; 84443; 85027

== ENCOUNTER 2025-01-26 16:37 | Outpatient (CLI) | payer OTHER, SELFPAY ==
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
--- OUTSIDE RECORDS SUMMARY | 2025-01-26 16:42 | XMS_ITS | Encounter Summary ---
Author Organization [facility] Address [address] [place] [address] Phone Care Team Providers Care Commissary Representative Name Role Phone Madalyn Callhaan Primary Care Provider Encounter Details Date Type Department Care Team (Latest Contact Info) Description 12/02/2024 Results Follow-Up [facility] Pediatric/Adolescen t Gynecology [address] [place] [address] Leisa Akers MD [address] [facility] [phone] [place] [address] N. gonorrhoeae/C. 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 Gender Identity Not on file Sexual Orientation Not on file Occupation Industry Job Start Date Job End Date Student Not on file Not on file Not on file documented as of this encounter Miscellaneous Notes * Result Encounter Note - Leisa Akers MD - 12/02/2024 11:28 AM CDT STI testing negative, patient updated in [facility] documented in this encounter Plan of Treatment Not on file documented as of this encounter Visit Diagnoses Not on filedocumented in this encounter Care Teams Commissary Representative Relationship Specialty Start Date End Date Madalyn Callahan PA [address] [place] [address] PCP - General Physician Wrapper Caser 08/13/21 documented as of this encounter
--- OUTSIDE RECORDS SUMMARY | 2025-01-26 16:42 | XMS_ITS | Patient Health Record ---
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 alprazolam 0.25 mg, 3 times a day as needed (patient reports infrequent use). - Continue hydroxyzine as needed (patient reports not using recently). 3. Insomnia - Patient reports difficulty falling asleep, staying asleep, and waking up too early. - Stopped trazodone 50 mg due to migraines. - Prescribe trazodone 50 mg, to be taken earlier in the evening. - Recommend melatonin 3-5 mg as needed for sleep. - Consider non-pharmacologi diana interventions like lavender oil. 4. Bipolar Disorder diff diagnosis - Patient reports manic-type symptoms and periods of elevated mood. - Continue monitoring symptoms and discuss in therapy sessions. 5. Follow-up - Schedule appointment in one month to assess response to aripiprazole and trazodone. - Monitor depressive and anxiety symptoms. - Offered option for virtual appointment. 06/17/2024 Other insomnia (ICD-10 - G47.09) 1. Depression - Patient reports recent episodes of depression with a severity of 8/10. - Plan: Continue venlafaxine 75 mg and 150 mg when split up. Encourage the patient to seek therapy for better coping strategies. 2. Anxiety - Patient reports anxiety severity of 8/10. - Plan: Continue sertraline once a day. Reduce Xanax usage and use only as prescribed by the factory machine computer operator for episodes of SVT and IST. 3. Manic episodes (possible bipolar disorder) - Patient reports manic episodes lasting more than 4 days. - Plan: Start aripiprazole 5 mg, taking half a tablet for a week, then increase to the full dose. Monitor patient's response to aripiprazole before confirming bipolar disorder diagnosis. Encourage the patient to seek therapy for better coping strategies. 4. Insomnia - Patient reports difficulty getting restful sleep. - Plan: Continue trazodone 50 mg. 5. ADHD (suspected) - Patient reports symptoms consistent with ADHD, such as difficulty focusing and completing tasks. - Plan: Monitor patient's response to venlafaxine, which contains norepinephrine and may aid with ADHD symptoms. 6. Substance use - Patient reports drinking 1-2 times per week, with increased consumption in the past 6 months. - Plan: Encourage the patient to reduce marijuana and alcohol consumption. Educate the patient on the risks of combining Xanax with alcohol. Follow-up: - Plan: Schedule a follow-up appointment in one month or sooner if needed. Obtain a urine sample for new patient testing. Refer the patient to therapist Genna for periodic therapy sessions. Once stable, transfer the patient back to [facility]. Provide crisis hotline information: 988 for call or text support. 06/17/2024 Anxiety (ICD-10 - F41.9) discussed alprazolam use with etoh abuse and risks. advised to not use alprazolam when drinking. encouraged reduction of ETOH use. encouraged reduction of alprazolam use. 1. Depression - Patient reports recent episodes of depression with a severity of 8/10. - Plan: Continue venlafaxine 75 mg and 150 mg when split up. Encourage the patient to seek therapy for better coping strategies. 2. Anxiety - Patient reports anxiety severity of 8/10. - Plan: Continue sertraline once a day. Reduce Xanax usage and use only as prescribed by the factory machine computer operator for episodes of SVT and IST. 3. Manic episodes (possible bipolar disorder) - Patient reports manic episodes lasting more than 4 days. - Plan: Start aripiprazole 5 mg, taking half a tablet for a week, then increase to the full dose. Monitor patient's response to aripiprazole before confirming bipolar disorder diagnosis. Encourage the patient to seek therapy for better coping strategies. 4. Insomnia - Patient reports difficulty getting restful sleep. - Plan: Continue trazodone 50 mg. 5. ADHD (suspected) - Patient reports symptoms consistent with ADHD, such as difficulty focusing and completing tasks. - Plan: Monitor patient's response to venlafaxine, which contains norepinephrine and may aid with ADHD symptoms. 6. Substance use - Patient reports drinking 1-2 times per week, with increased consumption in the past 6 months. - Plan: Encourage the patient to reduce marijuana and alcohol consumption. Educate the patient on the risks of combining Xanax with alcohol. Follow-up: - Plan: Schedule a follow-up appointment in one month or sooner if needed. Obtain a urine sample for new patient testing. Refer the patient to therapist Genna for periodic therapy sessions. Once stable, transfer the patient back to [facility]. Provide crisis hotline information: 988 for call or text support. 01/17/2025 MDD (major depressive disorder), severe (ICD-10 - F32.2) Second generation antipsychotics (SGAs) have metabolic syndrome issues with weight gain, increase in prolactin, increased waist circumference, increased lipids, and increased glucose. Thus routine monitoring of weight, metabolic labs, etc. is indicated. A general rank ordering of antipsychotics that have the greatest to the least risk of metabolic effects is olanzapine, quetiapine, risperidone, ziprasidone, and aripiprazole. However, weight gain can occur with all of these drugs and considerable variability exists among patients receiving the same drug regarding the risk of metabolic effects. Anti-psychotic agents not only increase the risk of metabolic disorder, they also increase the risk of CVA, akathisia, and movement disorders including EPS or tardive dyskinesia (more common with first generation antipsychotics) and more. SSRI/SNRI side effects discussed including but not limited to, gastric upset, nausea, vomiting, diarrhea and/or constipation, weight changes, sexual side effects including loss of libido, increased suicidal thoughts/behavio rs in children and young adults, and serotonin syndrome. 06/17/2024 Other Learning About Depression Screening material was printed 1. Depression - Patient reports recent episodes of depression with a severity of 8/10. - Plan: Continue venlafaxine 75 mg and 150 mg when split up. Encourage the patient to seek therapy for better coping strategies. 2. Anxiety - Patient reports anxiety severity of 8/10. - Plan: Continue sertraline once a day. Reduce Xanax usage and use only as prescribed by the factory machine computer operator for episodes of SVT and IST. 3. Manic episodes (possible bipolar disorder) - Patient reports manic episodes lasting more than 4 days. - Plan: Start aripiprazole 5 mg, taking half a tablet for a week, then increase to the full dose. Monitor patient's response to aripiprazole before confirming bipolar disorder diagnosis. Encourage the patient to seek therapy for better coping strategies. 4. Insomnia - Patient reports difficulty getting restful sleep. - Plan: Continue trazodone 50 mg. 5. ADHD (suspected) - Patient reports symptoms consistent with ADHD, such as difficulty focusing and completing tasks. - Plan: Monitor patient's response to venlafaxine, which contains norepinephrine and may aid with ADHD symptoms. 6. Substance use - Patient reports drinking 1-2 times per week, with increased consumption in the past 6 months. - Plan: Encourage the patient to reduce marijuana and alcohol consumption. Educate the patient on the risks of combining Xanax with alcohol. Follow-up: - Plan: Schedule a follow-up appointment in one month or sooner if needed. Obtain a urine sample for new patient testing. Refer the patient to therapist Genna for periodic therapy sessions. Once stable, transfer the patient back to [facility]. Provide crisis hotline information: 988 for call or text support. 10/27/2024 Other Plan to restart Abilify during upcoming time off of work. -Discussed to take half a tablet for about a week then increase to 5mg daily. - monitor for tremors, discontinue and contact office if this occurs Refills sent in for venlafaxine Patient educated on all medications including potential benefits, side effects, risks. Educated on proper dosing schedule and importance of compliance. -Assessment and treatment plan reviewed with patient. -Compliance with treatment plan importance discussed. -Discussed the risks/benefits of this medication -Discussed medication side effects. -Contact office if symptoms worsen. -Discussed that it can take up to 6-8 weeks to see full therapeutic effects of psychotropic medications. -Crisis [place] [id number]. 11/15/2024 Other Patient agreeable to start Abilify- take 2.5mg daily for one week then increase to 5mg daily. Patient educated on all medications including potential benefits, side effects, risks. Educated on proper dosing schedule and importance of compliance. -Assessment and treatment plan reviewed with patient. -Compliance with treatment plan importance discussed. -Discussed the risks/benefits of this medication -Discussed medication side effects. -Contact office if symptoms worsen. -Discussed that it can take up to 6-8 weeks to see full therapeutic effects of psychotropic medications. -Crisis [place] [id number]. 12/14/2024 Other Increase Abilify to 7.5mg daily -monitor tremors Patient educated on all medications including potential benefits, side effects, risks. Educated on proper dosing schedule and importance of compliance. -Assessment and treatment plan reviewed with patient. -Compliance with treatment plan importance discussed. -Discussed the risks/benefits of this medication -Discussed medication side effects. -Contact office if symptoms worsen. -Discussed that it can take up to 6-8 weeks to see full therapeutic effects of psychotropic medications. -[place] [id number]. 01/17/2025 Other Increase trazodone to 100mg qHS for sleep Patient to start lamictal for mood Continue venlafaxine at current dose Patient educated on all medications including potential benefits, side effects, risks. Educated on proper dosing schedule and importance of compliance. Cont counseling with Tonya -Assessment and treatment plan reviewed with patient. -Compliance with treatment plan importance discussed. -Discussed the risks/benefits of this medication -Discussed medication side effects. -Contact office if symptoms worsen. -Discussed that it can take up to 6-8 weeks to see full therapeutic effects of psychotropic medications. -[place] [id number]. Plan Of Treatment Pending Test Test Name Order Date Liver Function Test (LFT) 06/17/2024 LIPID PANEL, STANDARD (7600) 06/17/2024 THYROID PANEL WITH TSH (7444) 06/17/2024 COMPREHENSIVE METABOLIC PANEL (65758) CBC (H/H, RBC, INDICES, WBC, PLT) (1759) 06/17/2024 VITAMIN B12 (927) 06/17/2024 VITAMIN D,25-OH,TOTAL,IA (87130) 024 UDT 06/17/2024 Next Appt Details Provider Name:Tonya Clark, 02/01/2025 09:00:00 AM, [address], [facility] [address], [place], [address], Provider Name:Gabbi Macie shea, 02/10/2025 08:30:00 AM, [address], [address], [place], [address], Insurance Providers Payer Name Payer Address Payer Phone Subscriber Number Group Number Insured Name Patient Relationship to Insured Coverage Start Date Coverage End Date r [address] [address] [place] [address] [phone] [id number] SLADE ARREOLA Self - patient is the insured Medical (General) History Medical History History ICD Code Problems: Generalized anxiety disorder Moderately severe recurrent major depres lily Obesity Panic disorder Smoker Past Psychiatric History: An xiety Disorder,Panic Disorder,PTSD,Major Depressive Episode inappropriate sinus tachycardia hives endometriosis Past Psychiatric History: An xiety Disorder,Panic Disorder,Major Depressive Episode abdominal aortic aneurysm: No atrial fibrillation: No chronic fatigue syndrome: No essential tremor: No hyperlipidemia: No hypertension: No Parkinson's disease: No restless leg syndrome: No stroke: No subdural hematoma: No type 1 diabetes mellitus: No type 2 diabetes mellitus: No vitamin B12 deficiency: No vitamin D deficiency: No Surgical History Surgery Date(Month/Year) cholecystectomy wisdom teeth extraction laproscopy frenectomy Hospitalization History Reason Date(Month/Year) for surgery
--- OUTSIDE RECORDS SUMMARY | 2025-01-26 16:42 | XMS_ITS | Clinical Summary ---
Author Organization [facility] Address [address] [place] [address] Care Team Providers Care Cardiology Clinical Consultant Name Role Phone Madalyn Callahan Primary Care Provider [phone] Allergies No known active allergies Medications montelukast (SINGULAIR) 10 mg tablet Take 1 tablet (10 mg total) by mouth daily 0 Active famotidine (Pepcid AC) 20 mg tablet Take 1 tablet (20 mg total) by mouth 2 (two) times a day Active cetirizine 10 mg capsule Take 10 mg by mouth daily Active acetaminophen (TYLENOL) 500 mg tablet Take 2 tablets (1,000 mg total) by mouth every 6 (six) hours as needed for pain 30 tablet 1 Active Additional Information Patient not taking.Reported on 11/30/2024 calcium carbonate-vitam in D3 600 mg (1,500 mg)-800 unit tablet,chewable Take 600 mg by mouth daily 90 tablet 3 1 Active hydrOXYzine (ATARAX) 25 mg tablet TAKE 1 TO 2 TABLETS BY MOUTH TWICE DAILY NEEDED FOR ANXIETY 1 Active venlafaxine XR (EFFEXOR-XR) 150 mg 24 hr capsule 1 Active levonorgestreL (Mirena) IUD Mirena unspecified unspecified 0 Active metoprolol XL (TOPROL-XL) 25 mg extended release tablet Take 1 tablet (25 mg total) by mouth 2 (two) times a day 3 Active Active Problems Problem Noted Date Diagnosed Date IUD (intrauterine device) in place 10/29/2022 Endometriosis 07/25/2020 Dysmenorrhea 05/09/2020 Overview (05/09/2020): Added automatically from request for surgery [id number] Encounter for insertion of i ntrauterine contraceptive device (IUD) 05/09/2020 Overview (05/09/2020): Added automatically from request for surgery [id number] LLQ abdominal pain 08/09/2019 Other constipation 08/09/2019 Anxiety 08/09/2019 Low back pain 11/15/2014 Urticaria 09/03/2012 Benign neoplasm of skin 02/10/2012 Encounters Date Type Department Care Team Description 12/02/2024 Results Follow-Up [facility] Pediatric/Adolescen t Gynecology [facility] Office Building [address] [place] [phone] Leisa Akers MD N. gonorrhoeae/C. trachomatis Amplification Thin prep-Endocervical, Pap with reflex to High Risk HPV and Genotyping (Cytology Component) 11/30/2024 11:52 AM CDT - 11/30/2024 11:59 PM CDT Hospital Encounter [facility] [address] [place] [address] Well female exam with routine gynecological exam; Routine screening for STI (sexually transmitted infection) Discharge Disposition: Discharge to home or self care 11/30/2024 9:45 AM CDT Office Visit [facility] Pediatric/Adolescen t Gynecology [facility] Office Building [address] [place] [phone] Leisa Akers MD Well female exam with routine gynecological exam (Primary Dx); IUD (intrauterine device) in place; Routine screening for STI (sexually transmitted infection) from Last 3 Months Immunizations Immunization Administration Dates Next Due DTaP / Hep B / IPV 02/21/2003,2002, 003 DTaP 5 Pertussis 11/07/2006,11/28/2003 H1N1 All Forms 07/04/2009 HPV9 02/19/2021,12/19/2020 Hep A, Pediatric 11/07/2006,12/03/2005 Hep B, Adolescent or Pediatric 2002 Hib (PRP-OMP) 11/28/2003,2002,2002 IPV 11/07/2006 Influenza LAIV (Nasal) 04/09/2013,2011,05/17/2011,05/17,04/29/2009 Influenza, Quadrivalent, Spl it, Intramuscular 03/11/2019 Influenza, Quadrivalent, Spl it, Preservative Free, Intramuscular 04/11/2021,05/13/2020,03/11/2019,07/14 Influenza, Trivalent, IM (MDV) 06/19/2006,2004 Influenza, Trivalent, Preser vative Free, Intramuscular 05/27/2003,04/28/2003 MMR 08/23/2003 MMRV 11/07/2006 Meningococcal B, OMV (Bexsero) 06/05/2021,2020 Meningococcal MCV4P (Menactra) 12/17/2019,2013 Pneumococcal Conjugate 7-Valent 08/23/19 04,02/21/2003,2002,10/27 Tdap 01/18/2014 Varicella 08/23/2003 Surgical History Surgery Date Site/Laterality Comments WISDOM TOOTH EXTRACTION Medical History Medical History Date Comments Hives chronic Anxiety STI (sexually transmitted infection) CT Dysmenorrhea 05/09/2020 Added automatica lly from request for surgery [id number] Hives chronic, well co ntrolled on daily antihistamines Malignant hyperthermia strong fa abilio history, mother and uncle Endometriosis 07/25/2020 Family History Medical History Relation Name Comments Arthritis Father Family history of arthritis - (Added by TW Conv) [place] legs Father Bowleg - (Added by TW Conv) Hematomachrosis Father Hip Problems Father Hip problem - ( Added by TW Conv) Heart disease Maternal Grandfather Hyperlipidemia Maternal Grandfather Prostate cancer Maternal Grandfather Lymphoma Maternal Grandmother Hypertension Mother Low Back Pain Mother Family history of low back pain - (Added by TW Conv) Heart disease Paternal Grandfather Diabetes Paternal Grandmother Relation Name Status Comments Father Maternal Grandfather Maternal Grandmother Mother Other malignant hyper thermia Mother's Brother Other malignant h yperthermia Paternal Grandfather Paternal Grandmother Social History Tobacco Use Types Packs/Day Years Used Date Smoking Tobacco: Never Smokeless Tobacco: Never Tobacco Cessation:Counseling Given: Not Answered Alcohol Use Standard Drinks/Week Comments Yes 0 (1 standard drink = 0.6 oz pur e alcohol) Exercise Vital Sign Answer Date Recorde d Days of Exercise per Week 4 days 2019 Minutes of Exercise per Session 60 min 08/24/2019 Comments No Sex and Gender Information Value Date Recorded Sex Assigned at Not on file Legal Sex Female 11:40 PM BINDER LOCKSTITCH Gender Identity Not on file Sexual Orientation Not on file Occupation Industry Job Start Date Job End Date Student Not on file Not on file Not on file Obstetrics History Para Term AB IAB SAB Ectopic Multiple Livin g Live Births 0 0 0 0 0 0 0 0 0 0 0 Last Filed Vital Signs Vital Sign Reading Time Taken Comments Blood Pressure 139/90 11/30/2024 9:42 AM CDT Pulse 124 11/30/2024 9:42 AM CDT Temperature 36.5 C (97.7 F) 11/30/2024 9:42 AM CDT Respiratory Rate 16 11/30/2024 9:42 AM CDT Oxygen Saturation 100% 11/30/2024 9:42 AM CDT Inhaled Oxygen Concentration - - Weight 110.9 kg (244 lb 9.6 oz) 11/30/2024 9:42 AM CDT Height 160 cm (5' 3) 11/30/2024 9:42 AM CDT Body Mass Index 43.33 11/30/2024 9:42 AM CDT Plan of Treatment Health Maintenance Due Date Last Done Comments Depression Screening 2002 Hepatitis C Screening 2002 HPV Vaccines (3 - 3-dose series) 06/20/2021 02/20/20 21, 12/19/2020 DTaP/Tdap/Td Vaccine (7 - Td or Tdap) 01/19/2024 01/18/2014, 11/07/2006, 11/28/2003, Additional history exists Covid-19 Vaccine ( - 2023-2 5 season) 2024 07/13/2021, 10/10/2020, 09/19/2020 Influenza Vaccine (Season Ended) 2025 04/11/2021, 05/13/2020, 03/11/2019, Additional history exists Cervical Cancer Screening 11/30/2025 11/30/2024 Chlamydia and Gonorrhea (GC/ CT) Screening 11/30/2025 11/30/2024, 06/22/2021, 10/06/2020, Additional history exists Regular Well Visit/Exam 18-64 11/30/2025 11/30/2024 Hepatitis B Screening Completed 02/21/2003 , 2002, 2002, Additional history exists Pneumococcal vaccine <65 Completed 004, 02/21/2003, 2002, Additional history exists Varicella Vaccines Completed 11/07/2006, 08/23/2003 Meningococcal B Vaccine Completed 06/05/2021, 12/19 Medical Devices Implanted Type Area Industrial Cook Device Identifier Shelf Expiration Date Model / Serial / Lot Berlex Lab 25928-733-82 Mirena 20mcg/24hr Str Dshp - [id number] - [id number] Implanted:Qty: 1 on 07/13/2020 by Leisa Akers MD at [facility] N/A: Uterus Berlex Lab 05/06/2022 [id number] 1 / [id number] / [id number] Procedures Procedure Name Priority Date/Time Associated Diagnosis Comments PAP WITH REFLEX TO HIGH RISK HPV Routine 11/30/2024 11:52 AM CDT Routine screening for STI (sexually transmitted infection) THINPREP PROCESSING (MOLECULAR COMPONENT) Routine 11/30/2024 11:52 AM CDT Well female exam with routine gynecological exam N. GONORRHOEAE/C. TRACHOMATIS AMPLIFICATION Routine 11/30/2024 11:52 AM CDT Routine screening for STI (sexually transmitted infection) from Last 3 Months Results * ThinPrep processing (Molecular component) (11/30/2024 11:52 AM CDT) ThinPrep processing (Molecular component) Specimen received for processing. [facility] Endocervical 11/30/2024 11:5 2 AM CDT 12/01/2024 8:38 AM CDT us Leisa Akers MD LAB BODY FLUIDS AND STOOLS ORDERABLES Final Result [facility] Department [place] [address] [facility] * Pap with reflex to High Risk HPV and Genotyping (Cytology Component) (11/30/2024 11:52 AM CDT) Thin prep (Pap test) 11/30/2024 11:52 AM CDT 11/30/2024 7:15 PM CDT Narrative PATHOLOGY [facility] - 12/07/2024 4:30 PM CDT EPIC results best viewed via link to PDF [facility] [place] [address] Note to Patients: This report may contain a detailed description of human tissue sent by a health care provider to the laboratory for pathologic evaluation. The content of this report is essential for diagnosis and may provide important critical findings. This information may be unfamiliar to patients to review without a medical professional present. It is advised that the patient review this report in the presence of a health care provider who can answer questions and explain the details. CYTOPATHOLOGY REPORT FINAL Patient Name: SLADE ARREOLA Gender: F : 2000 (Age: 24) Address: [facility] [place] [address] [facility] #: [id number] Service: RETAIL TEAM LEADER Location: Patient Type: [facility] SPECIMEN Taken: 11/30/2024 Received: 11/30/2024 Accessioned: 12/01/2024 Reported: 12/07/2024 Physician(s): Leisa Akers M.D. FINAL INTERPRETATION SOURCE OF SPECIMEN Liquid based Thin Prep pap with Reflex HPV: STATEMENT OF ADEQUACY - Satisfactory for evaluation - Endocervical cells/transformation zone sample present GENERAL CATEGORIZATION: - Negative for squamous intraepithelial lesion or malignancy lwl/12/07/2024 16:30 Kulwinder Small KARENA DENNIS(ASCP)PA Report Electronically Reviewed and Signed Out By Kulwinder Small KARENA DENNIS(ASCP)STEPHANE 12/07/2024 16:30:41 Cervicovaginal Cytology (Pap Test) Disclaimer: The Pap test is a screening test used to detect cervical cancer and its precursors; it is not a diagnostic procedure. False negative and false positive results do occur. Pap test results should be interpreted in the context of pertinent clinical information and biopsy results as indicated. [facility] Clinical Laboratory Improvement Amendments (CLIA) mandate that cytologic and histologic results be correlated for laboratory lead quality technician & improvement standards. FOR ALL HIGH-GRADE CASES we request submission of follow-up histological material and/or reports that have not been previously provided so that we may fulfill said required standards. Gross Description A. Liquid based Thin Prep pap with Reflex HPV: Cervical/vaginal - Screening ThinPrep Clinical Diagnosis and History Last Menstrual Period: 09/2020 Menstrual History: Amenorrhea Contraceptive History: IUD The patient is a 24 year old female with first pap test. Report Images and scanned documents, if included only viewable in PDF version The performance characteristics of some immunohistochemical stains, in-situ hybridization and fluorescence in-situ hybridization tests and immunophenotyping by flow cytometry cited in this report (if any) were determined by the Surgical Pathology Department at [facility] as part of an ongoing ict quality assurance engineer program and in compliance with federally mandated regulations drawn from the Clinical Laboratory Improvement Act of 1988 (CLIA '88). Some of these tests rely on the use of analyte specific reagents and are subject to specific labeling requirements by the US Food and Drug Administration. Such diagnostic tests may only be performed in a facility that is certified by the Department of Health and Human Services as a high complexity laboratory under CLIA '88. The FDA has determined that such clearance or approval is not necessary. This test is used for clinical purposes. It should not be regarded as investigational or for research. Nevertheless, federal rules concerning the medical use of analyte specific reagents require that the following disclaimer be attached to the report: This test was developed and its performance characteristics determined by the Surgical Pathology Department of [facility]. It has not been cleared or approved by the U. S. Food and Drug Administration. Leisa Akers MD LAB CYTOLOGY ORDERABLES Fin al Result PATHOLOGY [facility] IO 3rd Floor [place], [place] [phone] * N. gonorrhoeae/C. trachomatis Amplification Thin prep-Endocervical (11/30/2024 11:52 AM CDT) C. trachomatis Not Detected [facility] N. gonorrhoeae Not Detected [facility] Comment: Interpretive Data This assay detects Chlamydia trachomatis and Neisseria gonorrhoeae by nucleic acid amplification testing (NAAT). This assay has been cleared by the [place] Food and Drug administration. The performance characteristics of this test have been verified by the [facility] Molecular Infectious Disease laboratory. The performance characteristics of this test have not been evaluated in individuals less than 14 years of age. Current Interpretive Data was last revised on 2023. Thin prep-Endocervica l (None) 11/30/2024 11:52 AM CDT 12/01/2024 8:38 AM CDT Leisa Akers MD LAB MICROBIOLOGY - GENERAL ORDERABLES Final Result Performing Organization Address [facility] de Phone Number [facility] Department [place] [address] [facility] from Last 3 Months Insurance [facility]S Care Teams Cardiology Clinical Consultant Relationship Specialty Start Date End Date Madalyn Callahan PA [address] [place] [address] PCP - General Physician Labor Relations Supervisor 08/13/21
--- OUTSIDE RECORDS SUMMARY | 2025-01-26 16:42 | XMS_ITS ---
Author Organization [facility] Address [address] [place] [phone] Care Team Providers Care Lan Engineer Name Role Phone Madalyn Callahan PA-C Primary Care Provider Unavailab Gabbi Ram Unavailable [phone] Tonya Blake Unavailable [phone] REASON FOR VISIT 1 week follow up Social History Sex Assigned At : Social History Observation Description Sex Assigned At Female Encounters Encounter Location Date Provider Diagnosis [facility] [address] [phone] 01/11/2025 Tonya Blake Plan Of Treatment Next Appt Details Provider Name:Tonya Blake, 02/01/2025 09:00:00 AM, [address] [place] [address], [phone], Provider Name:Gabbi shea, 02/10/2025 08:30:00 AM, [address] [place] [address], [phone], Progress Notes * SLADE ARREOLA RDOB: [birth year] (24 yo F)Acc No.[id number]:01/11/2025 Patient: Tahira SLADE BROWN Provider: Steven BLAKE LCSW :2000 A ge:24 Y S ex:Female Date:01/11/2025 Address:[address], [place]-[phone] Pcp:Madalyn Callahan PA-C Data: * Chief Complaints: * 1 . 1 week follow up. Assessment: Plan: * Treatment: * Billing Information: * Visit Code: * Procedure Codes: * Electronic signature of Tonya Blake LCSW on 01/26/2025 at 04:42 PM CDT Sign off status: Pending Signatures: No Ad Hoc Signature Added * Provider: Steven BLAKE LCSW Date: 01/11/2025 Generated for Donnie armijo/Paulo/Letitia on: 01/26/2025 04:42 PM CDT
--- OUTSIDE RECORDS SUMMARY | 2025-01-26 16:42 | XMS_ITS | Clinical Summary ---
Author Organization [facility] Address [address] [place] [address] Care Team Providers Care Armature Bander Name Role Phone Unavailable Primary Care Provider Unavailabl e Source Comments [facility],non-owned Affiliates and Associated Physician Practices is amultiple site organization consisting of ambulatory clinics and hospital sitesin [place], [place], [place] and [place]. This disclosure is being madepursuant to the Care Everywhere program and may not contain all information available regarding this patient. Last updated 18.[facility] Allergies No known active allergies Active Problems Problem Noted Date Diagnosed Date Malignant hyperthermia 08/04/2023 Social History Tobacco Use Types Packs/Day Years Used Date Smoking Tobacco: Never Smokeless Tobacco: Never Tobacco Cessation:Counseling Given: Not Answered Alcohol Use Standard Drinks/Week Comments Yes 0 (1 standard drink = 0.6 oz pur e alcohol) occ Comments No Sex and Gender Information Value Date Recorded Sex Assigned at Not on file Legal Sex Female 1:37 PM BELL SPINNER SOUSAPHONES Gender Identity Not on file Sexual Orientation Not on file Last Filed Vital Signs Vital Sign Reading Time Taken Comments Blood Pressure 143/76 08/04/2023 1:39 PM BELL SPINNER SOUSAPHONES Pulse 150 08/04/2023 1:39 PM BELL SPINNER SOUSAPHONES Temperature 36.4 C (97.5 F) 08/04/2023 1:39 PM BELL SPINNER SOUSAPHONES Respiratory Rate 16 08/04/2023 1:39 PM BELL SPINNER SOUSAPHONES Oxygen Saturation 100% 08/04/2023 1:39 PM BELL SPINNER SOUSAPHONES Inhaled Oxygen Concentration - - Weight 81.6 kg (180 lb) 08/04/2023 1:39 PM BELL SPINNER SOUSAPHONES Height 157.5 cm (5' 2) 08/04/2023 1:39 PM BELL SPINNER SOUSAPHONES Body Mass Index 32.92 08/04/2023 1:39 PM BELL SPINNER SOUSAPHONES Plan of Treatment Health Maintenance Due Date Last Done Comments HIV SCREENING 2017 HPV VACCINE (1 - 3-dose series) 2017 CHLAMYDIA/GONORRHEA SCREENING 2018 MENINGOCOCCAL (Group B) VACC INE SHARED DECISION-MAKING (1 of 2 - Standard) 2018 HEPATITIS C SCREENING 08/14/2020 DTAP/TDAP/TD VACCINES (1 - Tdap) 2021 HEPATITIS B VACCINE (1 of 3 - 19+ 3-dose series) 2021 PAP SMEAR 2023 COVID-19 VACCINE (1 - 2023-2 5 season) 2024 DEPRESSION SCREENING 07/07/2024 INFLUENZA VACCINE (#1) 2025 ZOSTER VACCINE (1 of 2) 2052 HIB VACCINE Aged Out No longer eligi ble based on patient's age to complete this topic MENINGOCOCCAL GROUPS A/C/Y/W VACCINE Aged Out No longer eligible b ased on patient's age to complete this topic PNEUMOCOCCAL VACCINE Aged Out No long er eligible based on patient's age to complete this topic Insurance * Guarantor: [place] Account Type Relation to Patient Date of Phone Billing Address Personal/Family [address] [place] [phone] [employer] SELF PAY NO INSURANCE Member Subscriber Plan / Payer (Ef fective for All Dates) Name:[place] Member ID:Not on file Relation to Subscriber:Not on file Name:[place] Subscriber ID:Not on file Address: [address] [place] [phone] Payer ID:Not on file Group ID:Not on file Type:Self Pay Address: [place], [place] [facility] Address: [facility] [address] [place] [address] * Guarantor: [place] Account Type Relation to Patient Date of Phone Billing Address Personal/Family [address] [place] [address] [employer] SELF PAY NO INSURANCE Member Subscriber Plan / Payer (Ef fective for All Dates) Name:[place] Member ID:Not on file Relation to Subscriber:Not on file Name:[place] Subscriber ID:Not on file Address: [address] [place] [phone] Payer ID:Not on file Group ID:Not on file Type:Self Pay Address: [place], [place] * Guarantor: [place] Account Type Relation to Patient Date of Phone Billing Address Personal/Family [address] [place] [address] [employer] SELF PAY NO INSURANCE Member Subscriber Plan / Payer (Ef fective for All Dates) Name:[place] Member ID:Not on file Relation to Subscriber:Not on file Name:[place] Subscriber ID:Not on file Address: [address] [place] [place] [address] Payer ID:Not on file Group ID:Not on file Type:Self Pay Address: [place], [place]
--- OUTSIDE RECORDS SUMMARY | 2025-01-26 16:42 | XMS_ITS | Referral Summary ---
Author Organization [facility] ospital Address [address] [place] [address] Care Team Providers Care Computer Lab Aide Name Role Phone Madalyn Callahan Primary Care Provider Encounters Date Type Department Care Team Description 12/02/2024 Results Follow-Up [facility] Pediatric/Adolescen t Gynecology [address] [facility] [address] [place] [phone] Leisa Akers MD N. gonorrhoeae/C. trachomatis Amplification Thin prep-Endocervical, Pap with reflex to High Risk HPV and Genotyping (Cytology Component) 11/30/2024 11:52 AM CDT - 11/30/2024 11:59 PM CDT Hospital Encounter [facility] [address] [place] [address] Well female exam with routine gynecological exam; Routine screening for STI (sexually transmitted infection) Discharge Disposition: Discharge to home or self care 11/30/2024 9:45 AM CDT [facility] [address] [facility] [address] [place] [phone] Leisa Akers MD Well female exam with routine gynecological exam (Primary Dx); IUD (intrauterine device) in place; Routine screening for STI (sexually transmitted infection) from Last 3 Months Allergies No known active allergies Medications montelukast [...] (05/09/2020): Added automatically from request for surgery [id number] Encounter for insertion of i ntrauterine contraceptive device (IUD) 05/09/2020 Overview (05/09/2020): Added automatically from request for surgery [id number] LLQ abdominal pain 08/09/2019 Other constipation 08/09/2019 Anxiety 08/09/2019 Low back pain 11/15/2014 Urticaria 09/03/2012 Benign neoplasm of skin 02/10/2012 Immunizations Immunization Administration Dates Next Due DTaP [...] 7-Valent 08/23/19 04,02/21/2003,2002,10/27 Tdap 01/18/2014 Varicella 08/23/2003 Social History Tobacco Use Types Packs/Day Years [...] on file 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 Gender Identity Not on file Sexual Orientation Not on file Occupation Industry Job Start Date Job End Date Student Not on file Not on file Not on file Last Filed Vital Signs [...] 11/30/2024 9:42 AM CDT Plan of Treatment Not on file Medical Devices Implanted Type Area International Logistics Manager Device Identifier Shelf Expiration Date Model / Serial / Lot Berlex Lab [id number] Mirena 20mcg/24hr Str D[facility]p - [id number] - [id number] Implanted:Qty: 1 on 07/13/2020 by Leisa Akers MD at [facility] N/A: Uterus Berlex Lab 05/06/2022 [id number] / [id number] / [id number] Procedures Procedure Name Priority Date/Time Associated Diagnosis [...] processing (Molecular component) Specimen received for processing. [facility] Endocervical 11/30/2024 11:5 2 AM CDT 12/01/2024 8:38 AM CDT us Leisa Akers MD LAB BODY FLUIDS AND STOOLS ORDERABLES Final Result [facility] Department [place] [address] [facility] * Pap with reflex to High Risk HPV and Genotyping (Cytology Component) (11/30/2024 11:52 AM CDT) Thin prep (Pap test) 11/30/2024 11:52 AM CDT 11/30/2024 7:15 PM CDT Narrative PATHOLOGY [facility] - 12/07/2024 4:30 PM CDT EPIC results best viewed via link to PDF [facility] [place] [address] Note to Patients: This report may contain [...] Gender: F : 2000 (Age: 24) Address: [address] [place], [place] [id number] [facility] #: [id number] Service: METEOROLOGIST LIAISON Location: Patient Type: [facility] SPECIMEN Taken: 11/30/2024 Received: 11/30/2024 Accessioned: 12/01/2024 Reported: 12/07/2024 Physician(s): Leisa Akers M.D. FINAL INTERPRETATION SOURCE OF SPECIMEN Liquid based Thin Prep pap with Reflex HPV: STATEMENT OF ADEQUACY - Satisfactory for evaluation - Endocervical cells/transformation zone sample present GENERAL CATEGORIZATION: - Negative for squamous intraepithelial lesion or malignancy lwl/12/07/2024 16:30 KARENA Feng MS(ASCP)STEPHANE Report Electronically Reviewed and Signed Out By KARENA Feng MS(ASCP)STEPHANE 12/07/2024 16:30:41 Cervicovaginal Cytology (Pap Test) Disclaimer: The Pap test is a screening test used to detect cervical cancer and its precursors; it is not a diagnostic procedure. False negative and false positive results do occur. Pap test results should be interpreted in the context of pertinent clinical information and biopsy results as indicated. [facility] Clinical Laboratory Improvement Amendments (CLIA) mandate that cytologic and histologic results be correlated for laboratory quality auditor & improvement standards. FOR ALL HIGH-GRADE CASES [...] determined by the Surgical Pathology Department at [facility] as part of an ongoing quality assurance assistant program and in compliance with federally mandated [...] determined by the Surgical Pathology Department of [facility]. It has not been cleared or approved by the [place]. [place]. Food and Drug Administration. Leisa Akers MD LAB CYTOLOGY ORDERABLES Vinny al Result PATHOLOGY [facility] 3rd Floor [place], [place] [phone] * N. gonorrhoeae/C. trachomatis Amplification Thin prep-Endocervical (11/30/2024 11:52 AM CDT) C. trachomatis Not Detected [facility] N. gonorrhoeae Not Detected [facility] Comment: Interpretive Data This assay detects Chlamydia trachomatis and Neisseria gonorrhoeae by nucleic acid amplification testing (NAAT). This assay has been cleared by the [place] Food and Drug administration. The performance characteristics of this test have been verified by the [facility]ious [facility] laboratory. The performance characteristics of this test have not been evaluated in individuals less than 14 years of age. Current Interpretive Data was last revised on 2023. Thin prep-Endocervica l (None) 11/30/2024 11:52 AM CDT 12/01/2024 8:38 AM CDT Leisa Akers MD LAB MICROBIOLOGY - GENERAL ORDERABLES Final Result [facility] [place] [address] [facility] from Last 3 Months Insurance [facility] [address] [employer] Care Teams Computer Lab Aide Relationship Specialty Start Date End Date Madalyn Callahan PA [address] [place] [address] PCP - General Physician Mop Man 08/13/21
--- OUTSIDE RECORDS SUMMARY | 2025-01-26 16:42 | XMS_ITS | Encounter Summary ---
Author Organization [facility] Address [address] [place] [address] Phone Care Team Providers Care It Compliance Analyst Name Role Phone Nina Mena MD Primary Care Provider [phone] Madalyn Callahan Primary Care Provider + [phone] Encounter Details Date Type Department Care Team (Late st Contact Info) Description 11/22/2017 Orders Only [facility] Pediatric Cardiology [facility] [address] Station [address] [place] [phone] Rachele Beltrán MD [address] [place] [address] [address] [place] [address] Social History Tobacco Use Types Packs/Day Years Used Date Smoking Tobacco: Never Comments Unknown Sex and Gender Information Value Date Recorded Sex Assigned at Not on file 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 Gender: female Current transmission: Date: 11/22/2017 Results: Normal sinus rhythm. documented in this encounter Plan of Treatment Not on file documented as of this encounter Visit Diagnoses Not on filedocumented in this encounter Care Teams It Compliance Analyst Relationship Specialty Start Date End Date Nina Mena MD [address] [place] [address] PCP - General 04/04/17 08/12/21 Madalyn Callahan PA [address] [place] [address] PCP - General Physician Laundry Worker 08/13/21 documented as of this encounter
[2025-01-26 16:58] LABS: Add Urine Microscopic? YES; Appearance Urine Cloudy (Clear); Glucose Urine UA Negative (Negative); Leukocyte Esterase Ur 2+ LEU/UL (Negative); Nitrate Urine Negative (Negative); Non Pathogenic Casts 0-2; Specific Grav Ur 1.026 (1.001-1.035)
== END 2025-01-26 16:38 | disposition home or self-care (01) ==
LOC: ANHLAB 16:40
PROVIDERS: PCP Family Medicine; Visit Provider Physician Assistant Medical
DX: R39.9 Unspecified symptoms and signs involving the genitourinary system (principal)
CPT/HCPCS: 81001; 87086